=== PATIENT | male | born 1990 | race Caucasian/White ===

== ENCOUNTER 2017-05-10 16:12 | Emergency (ER) | payer MEDICAID, OTHER ==
[~2017-05-10] VITALS: Wt 95.3 kg
[2017-05-10] MEDS ORDERED: FLUORESCEIN STRIP LEFT EYE ONE (18:00)
[2017-05-10] MEDS ORDERED: AMLODIPINE 10 MG TAB PO ONE (20:30)
[2017-05-10] MEDS ORDERED: AMLO-147 PO (20:50)
--- NOTE | 2017-05-10 20:58 | ERD ---
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 He immediately washed his eye out with copious amounts of water. He had blurred vision for a while but now has no blurred vision he can see normally. Still has left eye irritation. The noted to have high blood pressure in triage. Denies any chest pain, shortness of breath. States that he Fernando knew he had high blood pressure but does not take any medication. He also received currently told me that he has little bit of blood and discharge from the tip of his penis to denies any possibility of having sex with anyone but his . ROS All systems reviewed and are negative except as per history of present illness. Medications Home Meds Active Scripts Amlodipine Besylate* (Amlodipine Besylate*) 10 Mg Tablet, 10 MG PO DAILY, #30 TAB Prov:SALLY TORRE DO 05/10/17 Allergies Allergies: Coded Allergies: No Known Allergy (Unverified , 05/10/17) PMhx/Soc History of Surgery: No Anesthesia Reaction: No Hx Neurological Disorder: No Hx Respiratory Disorders: No Hx Cardiac Disorders: Yes (htn) Hx Psychiatric Problems: No Hx Miscellaneous Medical Probl: No Hx Alcohol Use: Yes Hx Substance Use: No Hx Tobacco Use: No Smoking Status: Never smoker Physical Exam Vitals Vital Signs Date Time Temp Pulse Resp B/P Pulse Ox O2 Delivery O2 Flow Rate FiO2 05/10/17 19:57 97.6 73 18 178/121 98 05/10/17 16:19 97.6 89 18 199/139 96 Physical Exam Const: [] No distress Head: Atraumatic Eyes: Slightly erythematous conjunctiva of the left eye. Normal funduscopic exam and no fluorescein uptake. EOMI, PERRLA ENT: Normal External Ears, Nose and Mouth. Neck: Full range of motion.. No JVD Resp: Clear to auscultation bilaterally Cardio: Regular rate and rhythm, no murmurs Skin: No petechiae or rashes Ext: No cyanosis, or edema Neur: Awake and alert and oriented 3, no focal deficits Psych: Normal Mood and Affect Results 24 hrs Current Medications Medications (Trade) Dose Ordered Sig/Sindhu Route PRN Reason Start Time Stop Time Status Last Admin Dose Admin Fluorescein Sodium (Ucpqq-Y-Ftkly) 1 strip ONCE ONCE LEFT EYE 05/10/17 18:00 05/10/17 18:01 DC Amlodipine Besylate (Norvasc) 10 mg ONCE ONCE PO 05/10/17 20:30 05/10/17 20:31 DC Ceftriaxone Sodium (Rocephin) 250 mg ONCE ONCE IM 05/10/17 21:00 05/10/17 21:01 Azithromycin (Zithromax) 1,000 mg ONCE ONCE PO 05/10/17 21:00 05/10/17 21:01 Procedures/MDM Local exposure to eye with a caustic chemical. I already irrigated by myself. He was placed on a Jag lens and irrigated for a total of 30 minutes as recommended by poison control. Poison control also said that this particular chemical, which they researched, was not 1 of the more severe I chemicals and it was unlikely to produce significant colin of the patient had normal visual acuity and no fluorescein uptake. He was given Rocephin and azithromycin for his penile discharge. He was given amlodipine for his blood pressure but not want undergo a full workup. Give him an amlodipine tab and I am discharging him with amlodipine 10 mg prescription. My care follow-up in 2-3 days for blood pressure control. Also recommend recommending ophthalmology follow-up there is Dr. Jesus Diagnosis: Primary Impression: Uncontrolled hypertension Additional Impression: Chemical exposure of eye Condition: Stable Patient Instructions: Eye Exposure, Chemical, Hypertension, Established, Out Of Control Referrals: [facility] YOU HAVE RECEIVED A MEDICAL SCREENING EXAM AND THE RESULTS INDICATE THAT YOU DO NOT HAVE A CONDITION THAT REQUIRES URGENT TREATMENT IN THE EMERGENCY DEPARTMENT. FURTHER EVALUATION AND TREATMENT OF YOUR CONDITION CAN WAIT UNTIL YOU ARE SEEN IN YOUR DOCTORS OFFICE WITHIN THE NEXT 1-2 DAYS. IT IS YOUR RESPONSIBILITY TO MAKE AN APPOINTMENT FOR FOLOW-UP CARE. IF YOU HAVE A PRIMARY DOCTOR --you should call your primary doctor and schedule an appointment IF YOU DO NOT HAVE A PRIMARY DOCTOR YOU CAN CALL OUR PHYSICIAN REFERRAL HOTLINE AT IF YOU CAN NOT AFFORD TO SEE A PHYSICIAN YOU CAN CHOSE FROM THE FOLLOWING [facility] [address] [facility]. [facility] [address] [facility] [facility] [address] [facility] [address] [facility]. [facility] [address] [facility] [facility]. [address] Additional Instructions: Llame al doctor MAANA y sergio mariella ERICKA PARA DENTRO DE 2-3 GAYLE.Dgale a la secretaria que nosotros le instruimos hacer esta ericka.Avise o llame si lara condicin se empeora antes de la ericka. Regresa aqui si peor o no mejor. SALLY TORRE DO May 10, 2017 20:57
--- NOTE | 2017-05-10 20:58 | ERD ---
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 He immediately washed his eye out with copious amounts of water. He had blurred vision for a while but now has no blurred vision he can see normally. Still has left eye irritation. The noted to have high blood pressure in triage. Denies any chest pain, shortness of breath. States that he Fernando knew he had high blood pressure but does not take any medication. He also received currently told me that he has little bit of blood and discharge from the tip of his penis to denies any possibility of having sex with anyone but his . ROS All systems reviewed and are negative except as per history of present illness. Medications Home Meds Active Scripts Amlodipine Besylate* (Amlodipine Besylate*) 10 Mg Tablet, 10 MG PO DAILY, #30 TAB Prov:SALLY TORRE DO 05/10/17 Allergies Allergies: Coded Allergies: No Known Allergy (Unverified , 05/10/17) PMhx/Soc History of Surgery: No Anesthesia Reaction: No Hx Neurological Disorder: No Hx Respiratory Disorders: No Hx Cardiac Disorders: Yes (htn) Hx Psychiatric Problems: No Hx Miscellaneous Medical Probl: No Hx Alcohol Use: Yes Hx Substance Use: No Hx Tobacco Use: No Smoking Status: Never smoker Physical Exam Vitals Vital Signs Date Time Temp Pulse Resp B/P Pulse Ox O2 Delivery O2 Flow Rate FiO2 05/10/17 19:57 97.6 73 18 178/121 98 05/10/17 16:19 97.6 89 18 199/139 96 Physical Exam Const: [] No distress Head: Atraumatic Eyes: Slightly erythematous conjunctiva of the left eye. Normal funduscopic exam and no fluorescein uptake. EOMI, PERRLA ENT: Normal External Ears, Nose and Mouth. Neck: Full range of motion.. No JVD Resp: Clear to auscultation bilaterally Cardio: Regular rate and rhythm, no murmurs Skin: No petechiae or rashes Ext: No cyanosis, or edema Neur: Awake and alert and oriented 3, no focal deficits Psych: Normal Mood and Affect Results 24 hrs Current Medications Medications (Trade) Dose Ordered Sig/Sindhu Route PRN Reason Start Time Stop Time Status Last Admin Dose Admin Fluorescein Sodium (Zuohw-F-Butmx) 1 strip ONCE ONCE LEFT EYE 05/10/17 18:00 05/10/17 18:01 DC Amlodipine Besylate (Norvasc) 10 mg ONCE ONCE PO 05/10/17 20:30 05/10/17 20:31 DC Ceftriaxone Sodium (Rocephin) 250 mg ONCE ONCE IM 05/10/17 21:00 05/10/17 21:01 Azithromycin (Zithromax) 1,000 mg ONCE ONCE PO 05/10/17 21:00 05/10/17 21:01 Procedures/MDM Local exposure to eye with a caustic chemical. I already irrigated by myself. He was placed on a Jag lens and irrigated for a total of 30 minutes as recommended by poison control. Poison control also said that this particular chemical, which they researched, was not 1 of the more severe I chemicals and it was unlikely to produce significant colin of the patient had normal visual acuity and no fluorescein uptake. He was given Rocephin and azithromycin for his penile discharge. He was given amlodipine for his blood pressure but not want undergo a full workup. Give him an amlodipine tab and I am discharging him with amlodipine 10 mg prescription. My care follow-up in 2-3 days for blood pressure control. Also recommend recommending ophthalmology follow-up there is Dr. Jesus Diagnosis: Primary Impression: Uncontrolled hypertension Additional Impression: Chemical exposure of eye Condition: Stable Patient Instructions: Eye Exposure, Chemical, Hypertension, Established, Out Of Control Referrals: [facility] YOU HAVE RECEIVED A MEDICAL SCREENING EXAM AND THE RESULTS INDICATE THAT YOU DO NOT HAVE A CONDITION THAT REQUIRES URGENT TREATMENT IN THE EMERGENCY DEPARTMENT. FURTHER EVALUATION AND TREATMENT OF YOUR CONDITION CAN WAIT UNTIL YOU ARE SEEN IN YOUR DOCTORS OFFICE WITHIN THE NEXT 1-2 DAYS. IT IS YOUR RESPONSIBILITY TO MAKE AN APPOINTMENT FOR FOLOW-UP CARE. IF YOU HAVE A PRIMARY DOCTOR --you should call your primary doctor and schedule an appointment IF YOU DO NOT HAVE A PRIMARY DOCTOR YOU CAN CALL OUR PHYSICIAN REFERRAL HOTLINE AT IF YOU CAN NOT AFFORD TO SEE A PHYSICIAN YOU CAN CHOSE FROM THE FOLLOWING [facility] [address] [facility]. [facility] [address] [facility] [address] [facility] [address] [facility]. [facility] [address] [facility]. [facility] [address] [facility]. [facility]. [address] Additional Instructions: Llame al doctor MAANA y sergio mariella ERICKA PARA DENTRO DE 2-3 GAYLE.Dgale a la secretaria que nosotros le instruimos hacer esta ericka.Avise o llame si lara condicin se empeora antes de la ericka. Regresa aqui si peor o no mejor. SALLY TORRE DO May 10, 2017 20:57
--- NOTE | 2017-05-10 20:58 | ERD ---
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 He immediately washed his eye out with copious amounts of water. He had blurred vision for a while but now has no blurred vision he can see normally. Still has left eye irritation. The noted to have high blood pressure in triage. Denies any chest pain, shortness of breath. States that he Fernando knew he had high blood pressure but does not take any medication. He also received currently told me that he has little bit of blood and discharge from the tip of his penis to denies any possibility of having sex with anyone but his . ROS All systems reviewed and are negative except as per history of present illness. Medications Home Meds Active Scripts Amlodipine Besylate* (Amlodipine Besylate*) 10 Mg Tablet, 10 MG PO DAILY, #30 TAB Prov:SALLY TORRE DO 05/10/17 Allergies Allergies: Coded Allergies: No Known Allergy (Unverified , 05/10/17) PMhx/Soc History of Surgery: No Anesthesia Reaction: No Hx Neurological Disorder: No Hx Respiratory Disorders: No Hx Cardiac Disorders: Yes (htn) Hx Psychiatric Problems: No Hx Miscellaneous Medical Probl: No Hx Alcohol Use: Yes Hx Substance Use: No Hx Tobacco Use: No Smoking Status: Never smoker Physical Exam Vitals Vital Signs Date Time Temp Pulse Resp B/P Pulse Ox O2 Delivery O2 Flow Rate FiO2 05/10/17 19:57 97.6 73 18 178/121 98 05/10/17 16:19 97.6 89 18 199/139 96 Physical Exam Const: [] No distress Head: Atraumatic Eyes: Slightly erythematous conjunctiva of the left eye. Normal funduscopic exam and no fluorescein uptake. EOMI, PERRLA ENT: Normal External Ears, Nose and Mouth. Neck: Full range of motion.. No JVD Resp: Clear to auscultation bilaterally Cardio: Regular rate and rhythm, no murmurs Skin: No petechiae or rashes Ext: No cyanosis, or edema Neur: Awake and alert and oriented 3, no focal deficits Psych: Normal Mood and Affect Results 24 hrs Current Medications Medications (Trade) Dose Ordered Sig/Sindhu Route PRN Reason Start Time Stop Time Status Last Admin Dose Admin Fluorescein Sodium (Hvfrl-X-Wwqth) 1 strip ONCE ONCE LEFT EYE 05/10/17 18:00 05/10/17 18:01 DC Amlodipine Besylate (Norvasc) 10 mg ONCE ONCE PO 05/10/17 20:30 05/10/17 20:31 DC Ceftriaxone Sodium (Rocephin) 250 mg ONCE ONCE IM 05/10/17 21:00 05/10/17 21:01 Azithromycin (Zithromax) 1,000 mg ONCE ONCE PO 05/10/17 21:00 05/10/17 21:01 Procedures/MDM Local exposure to eye with a caustic chemical. I already irrigated by myself. He was placed on a Jag lens and irrigated for a total of 30 minutes as recommended by poison control. Poison control also said that this particular chemical, which they researched, was not 1 of the more severe I chemicals and it was unlikely to produce significant colin of the patient had normal visual acuity and no fluorescein uptake. He was given Rocephin and azithromycin for his penile discharge. He was given amlodipine for his blood pressure but not want undergo a full workup. Give him an amlodipine tab and I am discharging him with amlodipine 10 mg prescription. My care follow-up in 2-3 days for blood pressure control. Also recommend recommending ophthalmology follow-up there is Dr. Jesus Diagnosis: Primary Impression: Uncontrolled hypertension Additional Impression: Chemical exposure of eye Condition: Stable Patient Instructions: Eye Exposure, Chemical, Hypertension, Established, Out Of Control Referrals: [facility] YOU HAVE RECEIVED A MEDICAL SCREENING EXAM AND THE RESULTS INDICATE THAT YOU DO NOT HAVE A CONDITION THAT REQUIRES URGENT TREATMENT IN THE EMERGENCY DEPARTMENT. FURTHER EVALUATION AND TREATMENT OF YOUR CONDITION CAN WAIT UNTIL YOU ARE SEEN IN YOUR DOCTORS OFFICE WITHIN THE NEXT 1-2 DAYS. IT IS YOUR RESPONSIBILITY TO MAKE AN APPOINTMENT FOR FOLOW-UP CARE. IF YOU HAVE A PRIMARY DOCTOR --you should call your primary doctor and schedule an appointment IF YOU DO NOT HAVE A PRIMARY DOCTOR YOU CAN CALL OUR PHYSICIAN REFERRAL HOTLINE AT IF YOU CAN NOT AFFORD TO SEE A PHYSICIAN YOU CAN CHOSE FROM THE FOLLOWING [facility] [address] [facility]. [facility] [address] [facility] [address] [facility] [address] [facility]. [facility] [address] [facility]. [facility] [address] [facility]. [facility]. [address] Additional Instructions: Llame al doctor MAANA y sergio mariella ERICKA PARA DENTRO DE 2-3 GAYLE.Dgale a la secretaria que nosotros le instruimos hacer esta ericka.Avise o llame si lara condicin se empeora antes de la ericka. Regresa aqui si peor o no mejor. SALLY TORRE DO May 10, 2017 20:57
[2017-05-10] MEDS ORDERED: CEFTRIAXONE 250 MG INJ IM ONE (21:00)
[2017-05-10] MEDS ORDERED: AZITHROMYCIN 250 MG TAB PO ONE (21:00)
[2017-05-10 22:37] VITALS: BP 130/81; PULSE 67; RESP 18; TEMP 97.6
== END 2017-05-10 22:39 | disposition home or self-care (01) ==
LOC: E/R 16:12
DX: I10 Essential (primary) hypertension (principal); T51.1X1A Toxic effect of methanol, accidental (unintentional), initial encounter
CPT/HCPCS: 96372; J0696; Z7502; Z7610

== ENCOUNTER 2018-03-05 17:49 | Emergency (ER) | END 2018-03-06 00:02 | disposition home or self-care (01) ==